=== PATIENT | female | born 1975 | race Two or more races ===

== ENCOUNTER 2017-03-11 14:24 | Emergency (ER) | payer MEDICAID, OTHER ==
[~2017-03-11] VITALS: Ht 157.5 cm; Wt 86.2 kg
[~2017-03-11 14:24] MED LIST: ALBUTEROL SULF8.5 GM INH; IBUPROFEN600 MG ORAL; KEFLEX500 MG ORAL; ZOFRAN4 M3 ORAL
[2017-03-11] MEDS ORDERED: Methocarbamol 750mg tab ORAL ONE (15:30)
[2017-03-11] MEDS ORDERED: Ketorolac 60mg Inj IM ONE (15:30)
[2017-03-11] MEDS ORDERED: IBUPROFEN600 MG ORAL (16:11)
[2017-03-11] MEDS ORDERED: ROBAXIN-750750 MG PO (16:11)
[2017-03-11 16:15] VITALS: BP 146/80
--- NOTE | 2017-03-11 17:38 | Emergency Room Report ---
History of Present Illness General Chief Complaint: Neck Pain Source: Patient Present Illness HPI The patient is a 42-year-old female presenting for left neck pain. She states that this began 2 days prior after waking up. She believes that she slept at an awkward position which caused the pain. She denies any known injury. Pain is a 10 out of 10 dull ache and is worse with head movement. She denies any radiating pain. She denies any other symptoms including nausea, vomiting, fever , chills, dizziness, blurred vision, numbness or tingling, chest pain, shortness of breath Allergies: Coded Allergies: No Known Allergies (Unverified , 11/03/15) Patient History Past Medical History: see triage record Pertinent Family History: none Last Menstrual Period: Three weeks ago Now: No Reviewed Nursing Documentation: PMH: Agreed, PSxH: Agreed Nursing Documentation-PMH Hx Asthma: Yes Review of Systems All Other Systems: negative except mentioned in HPI Physical Exam Vital Signs Date Time Temp Pulse Resp B/P (MAP) Pulse Ox O2 Delivery O2 Flow Rate FiO2 03/11/17 14:37 98.4 81 16 146/80 98 Room Air Sp02 EP Interpretation: reviewed, normal General Appearance: no apparent distress, alert, GCS 15, non-toxic Head: normocephalic, atraumatic Eyes: bilateral eye normal inspection, bilateral eye PERRL ENT: hearing grossly normal, normal pharynx, no angioedema, normal voice Neck: normal inspection, supple, no bony tend, tender lateral - L Respiratory: chest non-tender, lungs clear, normal breath sounds, speaking full sentences Cardiovascular #1: regular rate, rhythm, no edema Musculoskeletal: back normal, gait/station normal, normal range of motion Neurologic: alert, oriented x3, responsive, motor strength/tone normal, sensory intact, speech normal Psychiatric: judgement/insight normal, memory normal, mood/affect normal, no suicidal/homicidal ideation Skin: normal color, no rash, warm/dry, well hydrated Medical Decision Making PA Attestation Dr. Mueller is my supervising physician. Patient management was discussed with my supervising physician Diagnostic Impression: Primary Impression: Muscle strain ER Course The patient is a 42-year-old female presenting for left neck pain. Differential diagnoses considered but not limited to: Cervical strain, disc herniation, fracture PE: vitals WNL.NAD Head NC/AT PERRL A&Ox3 Neck: soft and supple. Full AROM. TTP over L paraspinous muscles. No midline tenderness. No step-offs The patient is given IM Toradol and Robaxin and states that pain has significantly decreased. She appears more comfortable. She will be discharged home with prescription for Motrin and Robaxin. She will followup with her primary doctor. ER precautions are given Last Vital Signs Date Time Temp Pulse Resp B/P (MAP) Pulse Ox O2 Delivery O2 Flow Rate FiO2 03/11/17 16:15 98.5 78 16 146/80 98 Room Air Status: improved Disposition: HOME, SELF-CARE Condition: Improved Scripts Methocarbamol* (ROBAXIN-750*) 750 Mg Tablet 750 MG PO TID, #21 TAB 0 Refills Prov: SAURAV WATKINS 03/11/17 Ibuprofen* (MOTRIN*) 600 Mg Tablet 600 MG ORAL Q8H Y for For Pain, #30 TAB 0 Refills Prov: SAURAV WATKINS 03/11/17 Patient Instructions: Muscle Strain Additional Instructions: I discussed my findings with the patient. All questions and concerns have been answered. Treatment and medication compliance have been addressed. I advised the patient that they need to follow up with PMD in 3-5 days. Return to ED if pain remains or worsens, numbness or tingling occurs, new rash is noticed, fever is noticed, or if needed for any reason. Patient verbalized understanding of discharge instructions. SAURAV WATKINS Mar 11, 2017 17:38
== END 2017-03-11 16:57 | disposition home or self-care (01) ==
LOC: EMR 15:27
DX: S16.1XXA Strain of muscle, fascia and tendon at neck level, initial encounter (principal); X58.XXXA Exposure to other specified factors, initial encounter; Y92.89 Other specified places as the place of occurrence of the external cause; J45.909 Unspecified asthma, uncomplicated
CPT/HCPCS: 96372; 99284